=== PATIENT | female | born 1965 | race Caucasian/White ===

== ENCOUNTER 2017-08-01 21:40 | Emergency (ER) | payer BC ==
[2017-08-01] MEDS ORDERED: Adenosine 6 MG/2 ML VIAL ONE (21:50)
[2017-08-01] MEDS ORDERED: Metoprolol Tartrate 5 MG/5 ML VIAL ONE (21:57)
--- NOTE | 2017-10-08 14:28 | EKG ---
Test Reason : RAPID HEART BEAT Blood Pressure : / mmHG Vent. Rate : 198 BPM Atrial Rate : 170 BPM P-R Int : 000 ms QRS Dur : 070 ms QT Int : 228 ms P-R-T Axes : 000 057 -50 degrees QTc Int : 413 ms Supraventricular tachycardia Septal infarct , age undetermined Marked ST abnormality, possible inferior subendocardial injury Abnormal ECG Confirmed by ORTIZ HUNT, RACIEL ([id number]), story editor LYRIC CANTU ([id number]) on 10/08/2017 2:28:02 PM Referred By: Confirmed By:RACIEL ALCANTAR MD
== END 2017-08-01 23:01 | disposition home or self-care (01) ==
LOC: ERS 21:40
DX: I47.1 Supraventricular tachycardia (principal)
CPT/HCPCS: 93005; 96361; 96374; 96375; J0153

== ENCOUNTER → 2017-08-22 | Day surgery (SDC) | payer BC ==
[~2017-08-22] MED LIST: DOPamine 400 MG/D5W 250 ML 0 ML ONE; Fentanyl 100 MCG/2 ML VIAL ONE; Heparin 10,000 UNITS/1 ML VIAL ONE; Isoproterenol 0.2 MG/1 ML AMP ONE; Lidocaine 1% (PF) 30 ML VIAL ONE; Midazolam HCl 2 mg/2 ml Vial ONE; PROPOFOL 200 MG/20 ML VIAL ONE; Propofol 1,000 MG/100 ML VIAL IV ONE; Propofol 500 MG/50 ML VIAL ONE
[2017-08-22 08:09] LABS: #Eosinphils 0.1 thou/uL (0.0-0.7); #Lymphocytes 1.8 thou/uL (1.20-3.40); #Monocytes 0.6 thou/uL (0.11-0.59); #Neutrophils 5.2 thou/uL (1.40-6.50); %Basophils 0.6 % (0.0-1.0); %Eosinophils 1.8 % (0.0-10.0); %Lymphocytes 23.6 % (21.0-51.0); %Monocytes 7.4 % (0.0-10.0); %Neutrophils 66.6 % (42.0-75.0); Hemoglobin 14.1 g/dL (12.0-16.0); Mean Corpuscular HGB CONC 33.2 g/dL (32.0-36.0); Mean Corpuscular Hemoglobin 29.7 pg (27.0-31.0); Mean Corpuscular Volume 89.5 fl (81.0-99.0); Mean Platelet Volume 9.5 fL (7.4-10.4); Platelet Count 211 thou/uL (130-400); RBC Distribution Width 12.5 % (11.5-14.5); Red Blood Cell (RBC) Count 4.76 mill/uL (4.20-5.40); White Blood Cell (WBC) Count 7.8 thou/uL (4.8-10.8)
[2017-08-22 08:10] LABS: INR-International Normal Ratio 1.1; PTT 24.3 SEC (22.9-36.1); Prothrombin Time 13.8 SEC (12.0-14.7)
[2017-08-22 08:22] LABS: Anion Gap 11 mmol/L (10-20); BUN (Urea Nitrogen) 10 mg/dL (9.8-20.1); Calc. Creatinine Clearance 109 mL/min (70-130); Calcium 8.9 mg/dL (7.8-10.44); Carbon Dioxide 23 mmol/L (22-29); Chloride 107 mmol/L (98-107); Estimated GFR-MDRD 82; Glucose 92 mg/dL (70-105); Potassium 4.1 mmol/L (3.5-5.1); Sodium 137 mmol/L (136-145)
--- NOTE | 2017-08-22 11:25 | OP ---
DATE OF SERVICE: 08/22/2017 PROCEDURE: EP study and ablation. ADMISSION PHYSICIAN: Dr. Beverly Huddleston REASON FOR PROCEDURE: Ms. Haney is a 52-year-old woman who has a history of palpitations and EKG d ocumentation of ____ terminable SVT. She is here for EP study and ablation. PROCEDURE: The patient received propofol per Anesthesia specialist for deep sedation. After adequat e level of sedation achieved, the left and right femoral venous area was prepped and draped and anest hetized using subcutaneous lidocaine with ultrasound guidance. The left femoral vein was cannulated with a 6 and 8 [place] short sheath was introduced. The right femoral vein was cannulated with an 8 F rench sheath. Through the left femoral veins an octapolar catheter advanced to the RV, His bundle an d right atrial position and a Decapolar catheter was advanced to the CS position. Comprehensive EP s tudy was then pursued. The findings are baseline cycle length was 800 milliseconds, NV 127, QRS 89, QT 367, AH 80, HV 37 mil liseconds. The sinus node recovery time was normal. AV Wenckebach cycle was 300 milliseconds, RBBB was 320 milliseconds. Concentric retrograde VA conduction was seen. AV sierra ERP was attempted to b e established, but reducing AV sierra reentry tachycardia with this method. Slow pathway was clearly demonstrated. The ventricular overdrive pacing produced VA response especially of 2 AV sierra recipro cating tachycardia. Parahisian pacing was also performed in sinus rhythm demonstrating appropriate lengthening on muscle capture only of the VA interval. No accessory pathway present in the area. Following that a standard 4 mm J curve catheter was advanced to the slow pathway area. Slow pathway modification was performed with a total of 2 minutes and 60 seconds Ring at 40 fry with a rate of 50 degrees. Junctional beats were observed during the application. Following that reinduction of th e AV NRT was attempted, which proved to be not possible. Also, there is no slow pathway demonstrated with the burst atrial pacing and extra stimuli testing. CONCLUSION: 1. Successful induction of typical AV sierra reentry tachycardia with cycle length of 220 millisecond s. 2. Successful pathway modification eliminated inducibility of this tachycardia. 3. No other atrial tachyarrhythmia's induced on and off isuprel. 4. Normal sinus and AV sierra function is seen. 5. No change in the cardiac silhouette seen at the end of the case.
--- NOTE | 2017-08-23 07:24 | EKG ---
Test Reason : POST EPS/ABLATION Blood Pressure : / mmHG Vent. Rate : 071 BPM Atrial Rate : 071 BPM P-R Int : 122 ms QRS Dur : 082 ms QT Int : 368 ms P-R-T Axes : 068 075 022 degrees QTc Int : 399 ms Normal sinus rhythm nsst segment changes When compared with ECG of 22-AUG-2017 07:58, No significant change was found Confirmed by DR. Leesa CHAMBERLAIN ([id number]) on 08/23/2017 7:24:04 AM Referred By: DIOR Confirmed By:DR. eLesa CHAMBERLAIN
== END ==
LOC: CCL 06:10
PROVIDERS: ATTEND Internal Medicine Cardiovascular Disease
PROC: 02583ZZ Destruction of Conduction Mechanism, Percutaneous Approach (ICD-10-PCS; principal; 2017-08-22)
PROC: 4A0234Z Measurement of Cardiac Electrical Activity, Percutaneous Approach (ICD-10-PCS; principal; 2017-08-22)
PROC: 4A023FZ Measurement of Cardiac Rhythm, Percutaneous Approach (ICD-10-PCS; principal; 2017-08-22)
DX: I47.1 Supraventricular tachycardia (principal); I34.0 Nonrheumatic mitral (valve) insufficiency; I34.1 Nonrheumatic mitral (valve) prolapse; Z79.899 Other long term (current) drug therapy; Z88.0 Allergy status to penicillin; Z88.8 Allergy status to other drugs, medicaments and biological substances
CPT/HCPCS: 36415; 76942; 80048; 85025; 85610; 85730; 93005; 93010; 93613; 93623; 93653; C1730; C1769; J1265; J1644; J2001; J2250; J2704; J3010

== ENCOUNTER 2017-10-10 07:58 | Outpatient (CLI) | payer BC | END 2017-10-10 07:59 | disposition home or self-care (01) | LOC: BICMAMMO 07:58 | PROVIDERS: ATTEND Obstetrics & Gynecology | DX: Z12.31 Encounter for screening mammogram for malignant neoplasm of breast (principal); R92.1 Mammographic calcification found on diagnostic imaging of breast | CPT/HCPCS: 77063; 77067 ==

== ENCOUNTER 2019-06-10 20:40 | Emergency (ER) | payer BC ==
[2019-06-10 21:28] LABS: #Basophils 0.1 thou/uL (0.0-0.2); #Eosinphils 0.2 thou/uL (0.0-0.7); #Lymphocytes 2.9 thou/uL (1.20-3.40); #Neutrophils 4.9 thou/uL (1.40-6.50); %Basophils 0.9 % (0.0-1.0); %Eosinophils 1.7 % (0.0-10.0); %Lymphocytes 31.9 % (21.0-51.0); %Monocytes 10.9 % (0.0-10.0); %Neutrophils 54.5 % (42.0-75.0); Hemoglobin 14.9 g/dL (12.0-16.0); Mean Corpuscular HGB CONC 33.1 g/dL (32.0-36.0); Mean Corpuscular Hemoglobin 29.9 pg (27.0-31.0); Mean Corpuscular Volume 90.4 fL (78.0-98.0); Mean Platelet Volume 9.3 fL (7.4-10.4); Platelet Count 295 thou/uL (130-400); RBC Distribution Width 12.2 % (11.5-14.5); Red Blood Cell (RBC) Count 4.97 mill/uL (4.20-5.40)
--- NOTE | 2019-06-10 21:33 | RAD ---
Exam: Chest one view HISTORY:Pain. Chest tightness and anxiety. Comparison: None. FINDINGS: Cardiac silhouette: Normal Aorta: Unremarkable Pulmonary vessels: Normal Costophrenic angles: Clear LUNGS: No masses or consolidation. Pneumothorax: None Osseous abnormalities: None IMPRESSION: No acute cardiopulmonary process.
[2019-06-10 21:49] LABS: ALT (SGPT) 25 U/L (8-55); AST (SGOT) 18 U/L (5-34); Albumin 4.1 g/dL (3.5-5.0); Alkaline Phosphatase 71 U/L (40-110); Anion Gap 13 mmol/L (10-20); BUN (Urea Nitrogen) 8 mg/dL (9.8-20.1); Bilirubin, Total 0.4 mg/dL (0.2-1.2); CK (CPK) 77 U/L (29-168); Calc. Creatinine Clearance 0 mL/min (70-130); Calcium 8.9 mg/dL (7.8-10.44); Carbon Dioxide 24 mmol/L (22-29); Chloride 107 mmol/L (98-107); Estimated GFR-MDRD 78; Globulin 2.5 g/dL (2.4-3.5); Glucose 106 mg/dL (70-105); Potassium 3.6 mmol/L (3.5-5.1); Protein, Total 6.6 g/dL (6.0-8.3); Sodium 140 mmol/L (136-145)
[2019-06-11] MEDS ORDERED: Lorazepam 1 MG TAB ONE (00:04)
== END 2019-06-11 00:32 | disposition home or self-care (01) ==
LOC: ERS 20:40
DX: F41.0 Panic disorder [episodic paroxysmal anxiety] (principal); F41.9 Anxiety disorder, unspecified; Z79.01 Long term (current) use of anticoagulants; Z79.82 Long term (current) use of aspirin
CPT/HCPCS: 36415; 71045; 80053; 82550; 83880; 84484; 85025; 93005